=== PATIENT | female | born 1975 ===

== ENCOUNTER 2025-02-23 06:32 | Day surgery (SDC) | payer OTHER, SELFPAY ==
[2025-02-17 13:40] VITALS: BMI 23.7
--- NOTE | 2025-02-21 21:12 | W.CON.GYNONC ---
Consultation
-
Date/Time Consultation Requested: 02/23/2025
Performing Provider: Ba Wheat
Chief Complaint
-
Uterine mass/Abdominal mass
History of Present Illness
49�year�old woman who is presenting for consultation regarding menorrhagia uterine fibroids as well as anemia
Her TRUST ADVISOR care has been provided by Dr. Alfredo.
An MRI of the pelvis with and without contrast was performed back in September 2018, at that time uterus measured 11.7 x 7.8 x 6.8
cm, exophytic from right anterior aspect of the uterus was a 6 cm myoma as well as 6 cm fibroid in the uterine fundus and multiple
additional smaller fibroids are pleasant. There was a submucosal myoma measuring 2 cm.
Past medical history significant for abnormal Pap smear of cervix, anxiety, hiatal hernia and hypothyroidism
Past surgical history significant for appendectomy cervical cone biopsy and laparoscopy
Social history significant for being , works as a hairdresser denies tobacco use but does use vaping, she denies any alcohol
or drug use
Family history significant for mother with non�Hodgkin's lymphoma, maternal aunt with leukemia and paternal grandfather with colon
cancer
Medications include vitamin C, Lipitor, vitamin D3, Lexapro, iron and Synthroid
Allergies No�Known�Drug�Allergies
Medications
atorvastatin�20�mg�tablet 01/14/2025 0 1�p.o.�q.�day
escitalopram�20�mg�tablet 01/14/2025 0 1�p.o.�q.�day
Synthroid�75�mcg�tablet 01/14/2025 0 1�p.o.�q.�day
Vitamin�D3�125�mcg�(5,000�unit)�tablet 01/14/2025 0 1�p.o.�q.�day
Surgical�History Appendectomy.�biopsy
Social�History Currently�uses�tobacco. Social�use�of�alcohol. Denies�any�illicit�drug�use.
Occupational�Status:�Current:�hairdresser.
Marital�Status:�Patient�is�
Gynecological�History Age�at�Menarche�14�years.�Patient�reports�3�pregnancies.�Her�age�at�first�full�term��was�20�years
Medical History
Allergies
Allergies reflect when allergies were last updated in [employer].
No Known Allergies Allergy (Verified 02/17/25 08:59)
Physical Exam
Physical Exam
Pelvic�Examination: External�normal�labia,�urethra,�anus.� Vagina:�Normal�mucosa.�On�bimanual�examination�there�is�fullness�right�up�against�the�posterior�fornix�of�vagina Cervix:�normal�appearance,�no�discharge.�
Procedure�note.�I�attempted�to�insert�a�os�finder�endocervical�canal.�It�meets�significant�resistance�in�the�lower�uterine�segment�and it�does�not�meet�true�cavity.�The�procedure�was�aborted
Uterus:�Uterus�is�irregular�contour,�approximately�18�to�20�weeks�in�size,�sidewall�is�free�and�there�is�moderate�mobility.� Adnexa:�No�pelvic�mass.� RVE:�no�masses�or�nodularity General:�Well�developed,�well�nourished�patient.�In�no�acute�distress.
Neck:�No�thyromegaly.�No�cervical�lymphadenopathy. Lungs:�Clear�to�auscultation.�Good�air�movement�bilaterally. Cardiac:�Regular�rate.�Regular�rhythm.�No�murmurs�appreciated. Right�Breast:�No�masses�or�dimpling.�No�nipple�discharge.
Left�Breast:�No�masses�or�dimpling.�No�nipple�discharge. Abdomen:�Abdomen�is�soft.�Non�tender�to�palpation.�Non�distended.�There�is�palpable�leiomyoma�based�on�lower�abdominal
examination�below�the�umbilicus.�There�is�a�separate�area�of�firmness�in�the�right�upper�quadrant�well�below�costal�margins, questionable�separate�mass�or�pedunculated�myoma Extremities:�No�edema. Hematologic/Lymphatic:�No�palpable�lymphadenopathy.
Musculoskeletal:�Normal�range�of�motion.�Strength�and�Tone�are�normal. Skin:Non�jaundiced.�No�petechia.�No�purpura. Neurologic:�Speech�is�fluent.�Normal�gait�and�station.�Cranial�nerves�intact
Results
-
Comp. Metabolic Panel (14) -FinalOrdered by: Cammy WHEAT
Glucose 98 mg/dL 70-99 [facility]
BUN 15 mg/dL 6-24 [facility]
Creat 0.80 mg/dL 0.57-1.00 [facility]
eGFR 90 mL/min/1.73 >59 [facility]
BUN Creat Ratio 19 9-23 [facility]
Sodium 139 mmol/L 134-144 [facility]
Potassium 4.2 mmol/L 3.5-5.2 [facility]
Chloride 102 mmol/L 96-106 [facility]
CO2 19Low mmol/L 20-29 [facility]
Calcium 9.6 mg/dL 8.7-10.2 [facility]
Total Protein 6.9 g/dL 6.0-8.5 [facility]
Albumin 4.6 g/dL 3.9-4.9 [facility]
Globulin 2.3 g/dL 1.5-4.5 [facility]
Total Bili <0.2 mg/dL 0.0-1.2 [facility]
Alk Phos 52 IU/L 44-121 [facility]
AST 17 IU/L 0-40 [facility]
ALT 10 IU/L 0-32 [facility]
Iron and TIBC -FinalOrdered by: Cammy WHEAT
Iron Bind.Cap.(TIBC) 296 ug/dL 250-450 [facility]
UIBC 211 ug/dL 131-425 [facility]
IRON 85 ug/dL 27-159 [facility]
Iron Sat Percent 29 % 15-55 [facility]
Vitamin B12 and Folate -FinalOrdered by: Cammy WHEAT
B12 498 pg/mL 232-1245 [facility]
Folate (Folic Acid), Serum 7.7 ng/mL >3.0 [facility]
A serum folate concentration of less than 3.1 ng/mL is
considered to represent clinical deficiency.
Prothrombin Time (PT) -FinalOrdered by: Cammy WHEAT
INR 1.0 0.9-1.2 [facility]-
Reference interval is for non-anticoagulated patients.
.
Suggested INR therapeutic range for Vitamin K
antagonist therapy:
Standard Dose (moderate intensity
therapeutic range): 2.0 - 3.0
Higher intensity therapeutic range 2.5 - 3.5
ProTime 10.7 sec 9.1-12.0 [facility]-
PTT, Activated -FinalOrdered by: Cammy WHEAT
aPTT 27 sec 24-33 [facility]-
This test has not been validated for monitoring unfractionated heparin
therapy. aPTT-based therapeutic ranges for unfractionated heparin
therapy have not been established. For general guidelines on
Heparin monitoring, refer to the [facility] Directory of Services.
Cancer Antigen (CA) 125 -FinalOrdered by: Cammy WHEAT
CA125 35.1 U/mL 0.0-38.1 [facility] [employer] Electrochemiluminescence Immunoassay (ECLIA)
.
Values obtained with different assay methods or kits cannot be
used interchangeably. Results cannot be interpreted as absolute
evidence of the presence or absence of malignant disease.
Luteinizing Hormone(LH) -FinalOrdered by: Cammy WHEAT
LH 18.6 mIU/mL [facility]
Adult Female Range
Follicular phase 2.4 - 12.6
Ovulation phase 14.0 - 95.6
Luteal phase 1.0 - 11.4
Postmenopausal 7.7 - 58.5
CEA -FinalOrdered by: Cammy WHEAT
CEA 2.0 ng/mL 0.0-4.7 [facility]
Nonsmokers <3.9
Smokers <5.6
.
[facility] [employer] Electrochemiluminescence Immunoassay
(ECLIA)
.
Values obtained with different assay methods or kits
cannot be used interchangeably. Results cannot be
interpreted as absolute evidence of the presence or
absence of malignant disease.
Estradiol -FinalOrdered by: Cammy WHEAT
Estradiol 24.6 pg/mL [facility]
Adult Female Range
Follicular phase 12.5 - 166.0
Ovulation phase 85.8 - 498.0
Luteal phase 43.8 - 211.0
Postmenopausal <6.0 - 54.7
1st trimester 215.0 - >4300.0
[facility]ane ECLIA methodology
FSH -FinalOrdered by: Cammy WHEAT
FSH 35.3 mIU/mL [facility]
Adult Female Range
Follicular phase 3.5 - 12.5
Ovulation phase 4.7 - 21.5
Luteal phase 1.7 - 7.7
Postmenopausal 25.8 - 134.8
TSH reflex to T4F -FinalOrdered by: Cammy WHEAT
TSH 1.830 uIU/mL 0.450-4.500 [facility]
hCG,Beta Subunit, Qnt -FinalOrdered by: Cammy WHEAT
B-Hcg <1 mIU/mL [facility]
Female (Non-) 0 - 5
(Postmenopausal) 0 - 8
.
Female ()
Weeks of Gestation
3 6 - 71
4 10 - 750
5 217 - 7138
6 741 - 08144
7 6434 -619321
8 52449 -478564
9 40474 -088853
10 38176 -617504
12 01556 -754853
14 69696 - 22771
15 15703 - 65958
16 0042 - 51434
17 6876 - 21013
18 1469 - 93980
[facility] ECLIA methodology
LDH -FinalOrdered by: Cammy WHEAT
LDH 192 IU/L 119-226 [facility]
Ferritin -FinalOrdered by: Cammy WHEAT
Ferritin 189High ng/mL 15-150 [facility]
Impression / Plan
-
49�year�old woman with history of fibroid that has grown over the last 6 years. She did not seek TRUST ADVISOR care during this time. She
appears to have concurrent anemia and iron deficiency and is now status post IV infusion of iron. She has had 1 episode of 2 weeks
heavy bleeding. I attempted endometrial biopsy in the office today but it is fairly difficult and not sure whether endometrial cavity is
actually accessible even if the D&C is pushed. Patient does understand that leiomyomas that grow in this age have the potential to
be malignant i.e. leiomyosarcoma and abnormal uterine bleeding is potentially a sign of endometrial cancer.
patient is recommended for surgical treatment consideration. I need imaging studies to better delineate route of surgery but for
now she understands that she will robotic exploration of adbdomen with total abdominal hysterectomy bilateral
salpingo�oophorectomy with a laparotomy incision to extract the specimen, there is possibility of opn JOSE BSO withprimary closure of incision.
. Risks of surgery including infection bleeding injury to adjacent organs DVT pulmonary embolism cardiovascular complications were discussed and reviewed
patient will be asked to obtain medical clearance from primary care physician including EKG
I have discussed with her recovery process including time off for driving lifting and return back to work.
[2025-02-23] VITALS (14 sets, daily range): BP systolic 111–148; BP diastolic 62–98; BMI 23.7
[2025-02-23] MEDS: TYLENOL 1000 MG PO (07:48)
[2025-02-23] MEDS: CELEBREX 200 MG PO (07:48)
[2025-02-23] MEDS: HEPARIN 5000 UNITS SC (07:48)
[2025-02-23] MEDS: NEURONTIN 300 MG PO (07:48)
[2025-02-23] MEDS: NORMOSOL-R/PLASMALYTE-A 1000 IV (07:49)
[2025-02-23] MEDS: TRANSDERM-SCOP 1 PATCH TRANSDERM (08:03)
[2025-02-23] MEDS: DILAUDID 0.25 MG IV ×2 (11:35→11:50)
--- NOTE | 2025-02-23 11:50 | W.IMMPOSTOP ---
Surgical Immed Post Op Note
-
Primary Surgeon: Ba Wheat
Assisting Surgeon: TEREZA Rain
Pre-op Diagnosis: Uterine leiomyoma, RUQ mass, symptomatic
Post-op Diagnosis: same
Procedure Performed: Robotic TLH BSO Uterus >250 g, wiht minilaparotomy for extraction of specimen
Anesthesia Type: General ET, TAP block
Specimen / Cultures: Uterus cervix, right and left tubes and ovaries
Estimated Blood Loss: 150 cc
Complications: none
Operative Findings: Normal upper abdomen including liver stomach and bilateral diaphragms. Filmy adhesions of portion of omentum to the right lower quadrant abdominal wall, the main body of the uterus is approximately 20 cm with multiple leiomyoma,
bilateral normal tubes and ovaries, large 15 cm pedunculated leiomyoma and right upper quadrant with Twisted pedunculated pedicle
[2025-02-23] MEDS: ZOFRAN 4 MG IV (12:05)
--- NOTE | 2025-02-23 12:18 | OR.RPT ---
Operative Report
Operative Report
Date of procedure: February 23, 2025
Primary Surgeon: Ba Wheat
Assisting Surgeon: Shamika Riley PA-C
Pre-op Diagnosis: Uterine leiomyoma, RUQ mass, symptomatic
Post-op Diagnosis: same
Procedure Performed: Robotic TLH BSO Uterus >250 g, wiht minilaparotomy for extraction of specimen
Anesthesia Type: General ET, TAP block
Specimen / Cultures: Uterus cervix, right and left tubes and ovaries
Estimated Blood Loss: 150 cc
Complications: none
Operative Findings: Normal upper abdomen including liver stomach and bilateral diaphragms. Filmy adhesions of portion of omentum to the right lower quadrant abdominal wall, the main body of the uterus is approximately 20 cm with multiple leiomyoma,
bilateral normal tubes and ovaries, large 15 cm pedunculated leiomyoma and right upper quadrant with Twisted pedunculated pedicle
Procedure in detail: This patient was brought to the operating room, placed in supine position, general anesthesia was administered and she was intubated without any difficulty. She was placed in lithotomy position using yellowfin stirrups and we
ensured that all extremities are free of any excessive pressure. Arms were wrapped in foam and placed along the patient's sides. Head and shoulders were properly supported. The patient was prepped in the abdomen perineum and vagina. She was
draped. Timeout procedure was carried out and she received Ancef and Flagyl for prophylaxis. We went ahead and placed a Albright catheter in the bladder under sterile conditions. Anterior lip of the cervix was identified and grasped and it was in an
unusually anterior location, the uterine canal was dilated and it inside sales trainer uterine manipulator with 3.5 cm BEN ring was placed around the cervix and the vaginal cuff occluder was insufflated. Veress needle was inserted just below the left
subcostal margin into the peritoneal cavity and CO2 gas was used to insufflate the abdomen up to pressure of 15 mmHg. 8 mm excised robotic port was inserted approximately 27 cm cephalad to symphysis pubis hoping to be above the level of most
cephalad leiomyoma. Under direct visualization 8 mm robotic ports were placed right and left upper quadrant right and left lateral abdomen. I performed a transversus abdominis plane block with ropivacaine injected 2 fingerbreadths on the right and
left side below the costal margins as well as right and left mid abdomen laterally. Following this the patient was placed in 28 degree Trendelenburg, robotic system was docked. Upper abdomen was inspected with the findings noted above and
attention was turned to the pelvis. Right and left round ligaments were both identified sealed and divided. Anterior and posterior leaves of the broad ligament were dissected open, we took down the adhesions between sigmoid colon and left IP
ligament and once the IP ligaments were isolated they were sealed with vessel sealer 3 times and divided. Tubes and ovaries were left attached to the uterus. I was able to develop the bladder flap sharply and extended below the level of the BEN
ring. Uterine arteries were skeletonized on both side of the pelvis. I was able to seal and divide uterine vessels using vessel sealer 3 times and divided some individual vessels that escaped the initial seal were sealed and divided with bipolar
cautery. Next a circumferential incision was made over the BEN ring until the uterine cervix was completely detached from the vagina. Uterine manipulator was then removed. The pedunculated leiomyoma occupying the right upper quadrant area was
sealed and divided across its twisted pedicle, a 10/15 endoscopic bag was placed in the abdomen and this pedunculated myoma was placed within it and cinched and parked in the right gutter. Another 10/15 endoscopic bag was introduced in the abdomen
and the remainder of the uterus cervix with bilateral tubes and ovaries was placed within it and again this was cinched and parked in the left gutter. We established good hemostasis around the vaginal apex and then closed the cuff using
[id number] sutures of 0 Vicryl at both apices incorporating uterosacral ligament. Next V-Loc suture was used to close the cuff starting from right to left and coming back a second V-Loc suture was used to close the cuff starting from left
coming to the right and then back to bites. Excellent hemostatic closure was performed and good support of the vaginal cuff was obtained. At this point we irrigated the pelvis and examined all pedicles which were hemostatic and dry. Patient
returned back to a 10 degree Trendelenburg after the robotic system was undocked. A 10 cm Pfannenstiel incision was made 2 fingerbreadths above symphysis pubis, we the rectus muscle and entered the peritoneal cavity and were able to
extract both bags of the specimen containing's uterus cervix bilateral tubes and ovaries as well as pedunculated leiomyoma and these were submitted to pathology. Good hemostasis was present, the fascia here was closed with STRATAFIX suture
symmetric type starting from both ends coming to the center and then returning back to each corner and reversed. Subcutaneous tissue was irrigated and closed with a 3-0 Monocryl running suture. 4-0 Monocryl in a subcuticular fashion was used to
close all skin incisions. We injected the low transverse incision with 20 cc quarter percent Marcaine. I examined the vagina and there was no lacerations and bleeding. Albright catheter was removed. Patient was awakened and extubated and returned
back to recovery room stable awake and extubated condition. Counts of laps instruments and needle was correct x 2. I was present and scrubbed for entire procedure as dictated above
Disposition: To PACU stable awake and extubated
[2025-02-23] MEDS: TYLENOL 650 MG PO (14:23)
== END 2025-02-23 16:14 | disposition home or self-care (01) ==
LOC: SDS 06:32
PROVIDERS: ATTENDING PHYSICIAN Obstetrics & Gynecology Gynecologic Oncology
DX: D25.0 Submucous leiomyoma of uterus (principal); R19.01 Right upper quadrant abdominal swelling, mass and lump; N83.01 Follicular cyst of right ovary; N83.8 Other noninflammatory disorders of ovary, fallopian tube and broad ligament
CPT/HCPCS: 58573; 88307; 36415; 86850; 86900; 86901